=== PATIENT | female | born 1945 | race Caucasian/White ===

== ENCOUNTER 2018-08-15 10:40 | Emergency (ER) | payer MEDICARE ==
[~2018-08-15 10:40] MED LIST: AMOX-429 PO; LISI30TA4 PO; METF-444 PO; OMEP40CA37 PO; PRAV80TA21 PO
[2018-08-15 11:03] LABS: BASOPHILS % (AUTO) 0.4 % (0.0-5.0); EOSINOPHILS % (AUTO) 1.3 % (0.0-8.0); LYMPHOCYTES % (AUTO) 32.8 % (21.0-51.0); MEAN CORPUSCULAR HEMOGLOBIN 29.4 pg (27.0-33.0); MEAN CORPUSCULAR HGB CONC 33.9 g/dL (32.0-36.0); MEAN CORPUSCULAR VOLUME 86.7 fL (79-99); MONOCYTES % (AUTO) 7.1 % (3.0-13.0); NEUTROPHILS % (AUTO) 58.4 % (40.0-77.0); NUCLEATED RED BLOOD CELLS 0.2 % (0.0-0.19); PLATELET COUNT (AUTO) 112 K/uL (130-400); RED BLOOD CELL COUNT(AUTO) 4.96 MIL/uL (4.00-5.50); RED CELL DISTRIBUTION WIDTH 12.2 % (11.0-15.5); WHITE BLOOD COUNT (AUTO) 7.5 K/uL (4.8-10.8)
[2018-08-15] MEDS ORDERED: IBUPROFEN 200 MG TAB ONE (11:38)
[2018-08-15] MEDS ORDERED: LORAZEPAM 1 MG TABLET ONE (11:39)
== END 2018-08-15 15:35 | disposition home or self-care (01) ==
LOC: EDH 10:40
DX: S16.1XXA Strain of muscle, fascia and tendon at neck level, initial encounter (principal); E11.9 Type 2 diabetes mellitus without complications; I10 Essential (primary) hypertension; E78.5 Hyperlipidemia, unspecified; F41.9 Anxiety disorder, unspecified; Z79.899 Other long term (current) drug therapy; V49.9XXA Car occupant (driver) (passenger) injured in unspecified traffic accident, initial encounter; Y93.89 Activity, other specified; Y92.89 Other specified places as the place of occurrence of the external cause; Y99.8 Other external cause status
CPT/HCPCS: 36415; 72040; 85025; 93005

== ENCOUNTER 2019-07-03 13:47 | Emergency (ER) | payer MEDICARE ==
[~2019-07-03 13:47] MED LIST changes: +OMEP40CA13 PO; -OMEP40CA37 PO
[2019-07-03] MEDS ORDERED: MORPHINE SULFATE 4 MG/1ML SYG ONE (14:22)
[2019-07-03] MEDS ORDERED: ONDANSETRON HCL 4 MG/2 ML VIAL ONE (14:22)
[2019-07-03 14:44] LABS: BASOPHILS % (AUTO) 0.4 % (0.0-5.0); EOSINOPHILS % (AUTO) 1.9 % (0.0-8.0); HEMATOCRIT 42.7 % (36-48); LYMPHOCYTES % (AUTO) 33.6 % (21.0-51.0); MEAN CORPUSCULAR VOLUME 88.2 fL (79-99); MONOCYTES % (AUTO) 5.9 % (3.0-13.0); NEUTROPHILS % (AUTO) 58.2 % (40.0-77.0); NUCLEATED RED BLOOD CELLS 0.1 % (0.0-0.19); PLATELET COUNT (AUTO) 123 K/uL (130-400); RED BLOOD CELL COUNT(AUTO) 4.84 MIL/uL (4.00-5.50); RED CELL DISTRIBUTION WIDTH 12.6 % (11.0-15.5); WHITE BLOOD COUNT (AUTO) 8.1 K/uL (4.8-10.8)
[2019-07-03 14:55] LABS: CREATININE 1.1 mg/dL (0.5-1.5); POTASSIUM 3.8 mmol/L (3.5-5.1)
[2019-07-03 14:57] LABS: INR 0.94 (0.85-1.15); PARTIAL THROMBOPLASTIN TIME 24.8 SEC (26.3-35.5); PROTHROMBIN TIME 9.9 SEC (9.6-11.6)
[2019-07-03 14:59] LABS: ALBUMIN 4.2 g/dL (3.5-5.0); BILIRUBIN,TOTAL 0.6 mg/dL (0.2-1.0); TOTAL PROTEIN, SERUM 7.3 g/dL (6.0-8.3)
[2019-07-03] MEDS ORDERED: LABETALOL 20 MG/4 ML DISP.SYRIN IV ONE (15:33)
[2019-07-03 15:44] LABS: B-TYPE NATRIURETIC PEPTIDE 17 pg/mL (0-100)
[2019-07-03 15:47] LABS: APPEARANCE,URINE Clear (CLEAR); BILIRUBIN,URINE Negative (NEGATIVE); COLOR,URINE Yellow (YELLOW); GLUCOSE, URINE (UA) Negative (NEGATIVE); KETONES,URINE Negative (NEGATIVE); LEUKOCYTE ESTERASE ,URINE Negative (NEGATIVE); NITRATE,URINE Negative (NEGATIVE); OCCULT BLOOD,URINE Negative (NEGATIVE); PH,URINE 5.5 (5.0-8.0); PROTEIN,URINE Negative (NEGATIVE)
== END 2019-07-03 16:57 | disposition home or self-care (01) ==
LOC: EDH 13:47
DX: R10.11 Right upper quadrant pain (principal); Z90.49 Acquired absence of other specified parts of digestive tract; Z90.710 Acquired absence of both cervix and uterus; Z98.890 Other specified postprocedural states
CPT/HCPCS: 36415; 71045; 74176; 80053; 81003; 82550; 83690; 83880; 84484; 85025; 85610; 85730; 93005; 96374; 96375; 99285; J2270; J2405

== ENCOUNTER 2020-06-11 08:57 | Emergency (ER) | payer MEDICARE ==
[2020-06-11] MEDS ORDERED: ONDANSETRON HCL 4 MG/2 ML VIAL ONE (09:22)
[2020-06-11] MEDS ORDERED: MORPHINE SULFATE 4 MG/1ML SYG ONE (09:23)
[2020-06-11 09:27] LABS: BASOPHILS % (AUTO) 0.5 % (0.0-5.0); EOSINOPHILS % (AUTO) 0.9 % (0.0-8.0); HEMATOCRIT 45.3 % (36-48); LYMPHOCYTES % (AUTO) 36.6 % (21.0-51.0); MEAN CORPUSCULAR HGB CONC 33.6 g/dL (32.0-36.0); MEAN CORPUSCULAR VOLUME 86.5 fL (79-99); MONOCYTES % (AUTO) 5.9 % (3.0-13.0); NEUTROPHILS % (AUTO) 55.7 % (40.0-77.0); PLATELET COUNT (AUTO) 117 K/uL (130-400); RED BLOOD CELL COUNT(AUTO) 5.24 MIL/uL (4.00-5.50); WHITE BLOOD COUNT (AUTO) 8.1 K/uL (4.8-10.8)
[2020-06-11 09:37] LABS: CREATININE 1.2 mg/dL (0.5-1.5); POTASSIUM 4.1 mmol/L (3.5-5.1)
[2020-06-11 09:40] LABS: INR 0.97 (0.85-1.15); PARTIAL THROMBOPLASTIN TIME 25.9 SEC (26.3-35.5); PROTHROMBIN TIME 10.5 SEC (9.6-11.6)
[2020-06-11 09:42] LABS: ALBUMIN 4.6 g/dL (3.5-5.0); BILIRUBIN,TOTAL 0.7 mg/dL (0.2-1.0); TOTAL PROTEIN, SERUM 7.7 g/dL (6.0-8.3)
[2020-06-11 09:54] LABS: APPEARANCE,URINE CLEAR (CLEAR); BILIRUBIN,URINE NEGATIVE (NEGATIVE); COLOR,URINE YELLOW (YELLOW); GLUCOSE, URINE (UA) NEGATIVE (NEGATIVE); KETONES,URINE 5 mg/dL (NEGATIVE); LEUKOCYTE ESTERASE ,URINE SMALL (NEGATIVE); NITRATE,URINE NEGATIVE (NEGATIVE); OCCULT BLOOD,URINE NEGATIVE (NEGATIVE); PH,URINE 5.5 (5.0-8.0); PROTEIN,URINE 30 mg/dL (NEGATIVE)
[2020-06-11 10:11] LABS: BACTERIA,URINE Few /HPF (None Seen); CALCIUM OXALATE CRYSTALS,UR Few /LPF (None Seen); SQUAMOUS EPITHELIAL CELL,UR Rare /HPF (0-2)
[2020-06-11] MEDS ORDERED: CEFTRIAXONE SODIUM 1 GM ONE (10:28)
[2020-06-11] MEDS ORDERED: SODIUM CHLORIDE 0.9% 50 ML IV ONE (10:29)
== END 2020-06-11 11:40 | disposition home or self-care (01) ==
LOC: EDH 08:57
DX: N39.0 Urinary tract infection, site not specified (principal); E11.9 Type 2 diabetes mellitus without complications; I10 Essential (primary) hypertension; Z90.49 Acquired absence of other specified parts of digestive tract; Z90.710 Acquired absence of both cervix and uterus
CPT/HCPCS: 36415; 74176; 80053; 81001; 82550; 84484; 85025; 85610; 85730; 87088; 93005; 96374; 96375; 99285; J0696; J2270; J2405

== ENCOUNTER 2020-06-15 14:34 | Emergency (ER) | payer MEDICARE ==
[2020-06-15] MEDS ORDERED: ONDANSETRON HCL 4 MG/2 ML VIAL ONE (15:51)
[2020-06-15 16:29] LABS: BASOPHILS % (AUTO) 0.5 % (0.0-5.0); EOSINOPHILS % (AUTO) 1.5 % (0.0-8.0); HEMATOCRIT 43.1 % (36-48); LYMPHOCYTES % (AUTO) 26.1 % (21.0-51.0); MEAN CORPUSCULAR HEMOGLOBIN 29.1 pg (27.0-33.0); MEAN CORPUSCULAR HGB CONC 33.4 g/dL (32.0-36.0); MEAN CORPUSCULAR VOLUME 87.1 fL (79-99); NEUTROPHILS % (AUTO) 62.6 % (40.0-77.0); PLATELET COUNT (AUTO) 121 K/uL (130-400); RED BLOOD CELL COUNT(AUTO) 4.95 MIL/uL (4.00-5.50); WHITE BLOOD COUNT (AUTO) 6.1 K/uL (4.8-10.8)
[2020-06-15 16:46] LABS: ALBUMIN 4.1 g/dL (3.5-5.0); BILIRUBIN,TOTAL 0.5 mg/dL (0.2-1.0); CREATININE 1.2 mg/dL (0.5-1.5); POTASSIUM 3.6 mmol/L (3.5-5.1)
[2020-06-15 17:49] LABS: APPEARANCE,URINE Clear (CLEAR); BILIRUBIN,URINE Negative (NEGATIVE); COLOR,URINE Dark Yellow (YELLOW); GLUCOSE, URINE (UA) Negative (NEGATIVE); KETONES,URINE Trace mg/dL (NEGATIVE); LEUKOCYTE ESTERASE ,URINE Small (NEGATIVE); NITRATE,URINE Negative (NEGATIVE); OCCULT BLOOD,URINE Negative (NEGATIVE); PROTEIN,URINE Trace mg/dL (NEGATIVE)
[2020-06-15 18:04] LABS: BACTERIA,URINE Few /HPF (None Seen); RBC,URINE None Seen /HPF (0-1); SQUAMOUS EPITHELIAL CELL,UR None Seen /HPF (0-2)
== END 2020-06-15 20:48 | disposition home or self-care (01) ==
LOC: EDH 14:34
DX: N39.0 Urinary tract infection, site not specified (principal); E11.9 Type 2 diabetes mellitus without complications; I10 Essential (primary) hypertension; Z90.49 Acquired absence of other specified parts of digestive tract; Z90.710 Acquired absence of both cervix and uterus; Z79.899 Other long term (current) drug therapy
CPT/HCPCS: 36415; 76770; 80053; 81001; 82550; 84484; 85025; 87088; 93005; 96374; 99285; J2405

== ENCOUNTER 2022-04-11 05:16 | Emergency (ER) | payer MEDICARE ==
[~2022-04-11] VITALS: Ht 172.7 cm; Wt 83.0 kg
[~2022-04-11 05:16] MED LIST changes: -OMEP40CA13 PO; +OMEP40CA21 PO
[2022-04-11 05:41] LABS: APPEARANCE,URINE CLEAR (CLEAR); BILIRUBIN,URINE NEGATIVE (NEGATIVE); COLOR,URINE YELLOW (YELLOW); GLUCOSE, URINE (UA) 250 mg/dL (NEGATIVE); KETONES,URINE NEGATIVE (NEGATIVE); LEUKOCYTE ESTERASE ,URINE TRACE (NEGATIVE); NITRATE,URINE NEGATIVE (NEGATIVE); OCCULT BLOOD,URINE SMALL (NEGATIVE); PH,URINE 5.5 (5.0-8.0); PROTEIN,URINE NEGATIVE (NEGATIVE); UROBILINOGEN,URINE 0.2 mg/dL (0.2-1.0)
[2022-04-11 05:45] LABS: BACTERIA,URINE None Seen /HPF (None Seen); RBC,URINE 0-1 /HPF (0-1); SQUAMOUS EPITHELIAL CELL,UR Few /HPF (0-2)
[2022-04-11 05:59] LABS: BASOPHILS % (AUTO) 0.5 % (0.0-5.0); EOSINOPHILS % (AUTO) 1.4 % (0.0-8.0); LYMPHOCYTES % (AUTO) 29.3 % (21.0-51.0); MEAN CORPUSCULAR HEMOGLOBIN 29.3 pg (27.0-33.0); MEAN CORPUSCULAR HGB CONC 34.1 g/dL (32.0-36.0); MEAN CORPUSCULAR VOLUME 85.8 fL (79-99); MONOCYTES % (AUTO) 8.9 % (3.0-13.0); NEUTROPHILS % (AUTO) 59.4 % (40.0-77.0); PLATELET COUNT (AUTO) 99 K/uL (130-400); RED BLOOD CELL COUNT(AUTO) 4.78 MIL/uL (4.00-5.50); RED CELL DISTRIBUTION WIDTH 12.5 % (11.0-15.5); WHITE BLOOD COUNT (AUTO) 8.3 K/uL (4.8-10.8)
[2022-04-11] MEDS ORDERED: MORPHINE 2 MG SYG IVP ONE (06:00)
[2022-04-11] MEDS ORDERED: LACTATED RINGERS 1000ML 1,000 ML IV ONE (06:00)
[2022-04-11] MEDS ORDERED: ONDANSETRON 4MG INJ IVP ONE (06:00)
[2022-04-11 06:13] LABS: ALBUMIN 3.9 g/dL (3.5-5.0); TOTAL PROTEIN, SERUM 6.8 g/dL (6.0-8.3)
[2022-04-11] MEDS ORDERED: IOHEXOL 350 MG/ML 100ML INFUS..BTL IV ONE (06:21)
[2022-04-11 06:30] VITALS: BP 191/80
[2022-04-11] MEDS ORDERED: ZOSYN 3.375GM +NS 50ML IV SCH (06:30)
[2022-04-11] MEDS ORDERED: CEPH500B PO (09:07)
== END 2022-04-11 09:18 | disposition home or self-care (01) ==
LOC: EDH 05:16
DX: N39.0 Urinary tract infection, site not specified (principal); E11.9 Type 2 diabetes mellitus without complications; I10 Essential (primary) hypertension; E86.0 Dehydration; Z90.49 Acquired absence of other specified parts of digestive tract; Z87.442 Personal history of urinary calculi
CPT/HCPCS: 36415; 74177; 80053; 81001; 83690; 85025; 96361; 96374; 96375; J2405; J2543; J7120; Q9967

== ENCOUNTER 2023-06-27 12:59 | Emergency (ER) | payer MEDICARE ==
[~2023-06-27] VITALS: Ht 175.3 cm; Wt 83.9 kg
[~2023-06-27 12:59] MED LIST changes: +CEPH500B PO
[2023-06-27 13:45] LABS: BASOPHILS # (AUTO) 0.03 K/uL (0.00-0.20); BASOPHILS % (AUTO) 0.4 % (0.0-5.0); EOSINOPHILS # (AUTO) 0.08 K/uL (0.00-0.70); HEMATOCRIT 42.6 % (36-48); IMMATURE GRANULOCYTE ABSOLUTE 0.03 K/uL (0-1); LYMPHOCYTES # (AUTO) 1.7 K/uL (1.0-4.8); LYMPHOCYTES % (AUTO) 21.1 % (21.0-51.0); MEAN CORPUSCULAR HEMOGLOBIN 29.1 pg (27.0-33.0); MEAN CORPUSCULAR VOLUME 85.4 fL (79-99); MONOCYTES # (AUTO) 0.6 K/uL (0.1-1.0); MONOCYTES % (AUTO) 7.8 % (3.0-13.0); NEUTROPHILS # (AUTO) 5.4 K/uL (1.8-7.7); NEUTROPHILS % (AUTO) 69.3 % (40.0-77.0); PLATELET COUNT (AUTO) 131 K/uL (130-400); RED BLOOD CELL COUNT(AUTO) 4.99 MIL/uL (4.00-5.50); RED CELL DISTRIBUTION WIDTH 12.3 % (11.0-15.5); WHITE BLOOD COUNT (AUTO) 7.9 K/uL (4.8-10.8)
[2023-06-27 13:56] LABS: CREATININE 1.2 mg/dL (0.5-1.5); POTASSIUM 3.6 mmol/L (3.5-5.1)
[2023-06-27 14:05] LABS: SARS-CoV-2, RNA, NAAT NEGATIVE SARS CoV-2 (NEGATIVE)
[2023-06-27 14:06] LABS: ALBUMIN 4.1 g/dL (3.5-5.0); BILIRUBIN,TOTAL 0.9 mg/dL (0.2-1.0)
[2023-06-27 14:10] LABS: INFLUENZA TYPE A Negative For Type A (NEGATIVE); INFLUENZA TYPE B Negative For Type B (NEGATIVE)
[2023-06-27] MEDS ORDERED: LACTATED RINGERS 1000ML 1,000 ML IV ONE (14:30)
[2023-06-27] MEDS ORDERED: ONDANSETRON 4MG INJ IVP ONE (14:30)
[2023-06-27] MEDS ORDERED: METR-172 PO (15:56)
[2023-06-27 17:05] VITALS: BP 168/79; PULSE 68; RESP 18; O2SAT 100
== END 2023-06-27 17:06 | disposition home or self-care (01) ==
LOC: EDH 12:59
DX: K52.9 Noninfective gastroenteritis and colitis, unspecified (principal); E11.9 Type 2 diabetes mellitus without complications; E78.00 Pure hypercholesterolemia, unspecified; I10 Essential (primary) hypertension; Z90.49 Acquired absence of other specified parts of digestive tract; Z20.822 Contact with and (suspected) exposure to COVID-19; Z98.890 Other specified postprocedural states
CPT/HCPCS: 99285; 96374; 87635; 96361; 82550; 83874; 84484; 80053; 85025; 87804 ×2; 36415; 74018; 93005; C9803; J7120; J2405

== ENCOUNTER 2023-08-23 17:32 | Emergency (ER) | payer MEDICARE ==
[~2023-08-23] VITALS: Ht 167.6 cm; Wt 107.0 kg
[~2023-08-23 17:32] MED LIST changes: +METR-172 PO
[2023-08-23 18:59] LABS: HEMATOCRIT 41.4 % (36-48); MEAN CORPUSCULAR HEMOGLOBIN 30.1 pg (27.0-33.0); MEAN CORPUSCULAR HGB CONC 35.5 g/dL (32.0-36.0); MEAN CORPUSCULAR VOLUME 84.7 fL (79-99); PLATELET COUNT (AUTO) 118 K/uL (130-400); RED BLOOD CELL COUNT(AUTO) 4.89 MIL/uL (4.00-5.50); RED CELL DISTRIBUTION WIDTH 12.3 % (11.0-15.5); WHITE BLOOD COUNT (AUTO) 6.9 K/uL (4.8-10.8)
[2023-08-23 19:27] LABS: EOSINOPHILS % (MANUAL) 3 % (1-6); LYMPHOCYTES % (MANUAL) 37 % (22-44); MONOCYTES % (MANUAL) 7 % (2-9); SEGMENTED NEUTROPHILS % 53 % (40-70); TOTAL CELLS COUNTED 100
[2023-08-23] MEDS ORDERED: LABETALOL 20MG SYG IV ONE (19:30)
[2023-08-23] MEDS ORDERED: HYDROMORPHONE 0.5 MG SYG (0.5MG/0.5ML) IVP ONE (19:30)
[2023-08-23 19:36] LABS: MAN.DIFF COMMENT-IMPRESSION MANUAL DIFFERENTIAL; PLATELET MORPHOLOGY COMMENT SLIGHTLY DECREASED; WBC MORPHOLOGY SMUDGE CELLS 1+
[2023-08-23 19:49] LABS: BILIRUBIN,TOTAL 0.6 mg/dL (0.2-1.0); CREATININE 0.7 mg/dL (0.5-1.5); POTASSIUM 4.9 mmol/L (3.5-5.1); TOTAL PROTEIN, SERUM 7.1 g/dL (6.0-8.3)
[2023-08-23 21:31] VITALS: BP 168/70; PULSE 78; RESP 18; O2SAT 98
[2023-08-23 21:37] LABS: APPEARANCE,URINE CLEAR (CLEAR); BILIRUBIN,URINE NEGATIVE (NEGATIVE); COLOR,URINE LIGHT-YELLOW (YELLOW); GLUCOSE, URINE (UA) NEGATIVE (NEGATIVE); KETONES,URINE NEGATIVE (NEGATIVE); LEUKOCYTE ESTERASE ,URINE NEGATIVE Leu/uL (NEGATIVE); NITRATE,URINE NEGATIVE (NEGATIVE); OCCULT BLOOD,URINE NEGATIVE (NEGATIVE); PROTEIN,URINE NEGATIVE (NEGATIVE); UROBILINOGEN,URINE 0.2 mg/dL (0.2-1.0)
[2023-08-23 21:39] LABS: ADD UA MICROSCOPIC NO
[2023-08-23] MEDS ORDERED: IBUP-1493 PO (21:50)
[2023-08-23] MEDS ORDERED: CYCL-309 PO (21:50)
[2023-08-23] MEDS ORDERED: GABA300C PO (21:50)
[2023-08-23] MEDS ORDERED: LIDOP TD (21:50)
== END 2023-08-23 22:07 | disposition home or self-care (01) ==
LOC: EDH 17:32
DX: I10 Essential (primary) hypertension (principal); M54.50 Low back pain, unspecified; E11.9 Type 2 diabetes mellitus without complications; E78.00 Pure hypercholesterolemia, unspecified; Z90.49 Acquired absence of other specified parts of digestive tract
CPT/HCPCS: 99285; 96374; 71045; 96375; 82550; 84484; 80053; 85025; 81003; 36415; 93005; J1170

== ENCOUNTER → 2023-10-29 | Outpatient (CLI) | payer MEDICARE ==
[~2023-10-29] MED LIST changes: +CYCL-309 PO; +GABA300C PO; +IBUP-1493 PO; +LIDOP TD
== END | disposition home or self-care (01) ==
LOC: SHCH 13:12
PROVIDERS: ATTEND Student in an Organized Health Care Education/Training Program
DX: R94.31 Abnormal electrocardiogram [ECG] [EKG] (principal)
CPT/HCPCS: 93306

== ENCOUNTER 2023-12-26 21:24 | Emergency (ER) | payer MEDICARE ==
[~2023-12-26] VITALS: Ht 175.3 cm; Wt 79.4 kg
[~2023-12-26 21:24] MED LIST changes: -PRAV80TA21 PO; +PRAV80TA43 PO
[2023-12-26 21:55] LABS: BASOPHILS # (AUTO) 0.05 K/uL (0.00-0.20); BASOPHILS % (AUTO) 0.7 % (0.0-5.0); EOSINOPHILS # (AUTO) 0.09 K/uL (0.00-0.70); EOSINOPHILS % (AUTO) 1.2 % (0.0-8.0); IMMATURE GRANULOCYTE ABSOLUTE 0.02 K/uL (0-1); LYMPHOCYTES # (AUTO) 1.9 K/uL (1.0-4.8); LYMPHOCYTES % (AUTO) 24.9 % (21.0-51.0); MEAN CORPUSCULAR HGB CONC 33.2 g/dL (32.0-36.0); MEAN CORPUSCULAR VOLUME 87.4 fL (79-99); MONOCYTES # (AUTO) 0.6 K/uL (0.1-1.0); MONOCYTES % (AUTO) 8.3 % (3.0-13.0); NEUTROPHILS # (AUTO) 4.8 K/uL (1.8-7.7); NEUTROPHILS % (AUTO) 64.6 % (40.0-77.0); PLATELET COUNT (AUTO) 131 K/uL (130-400); RED BLOOD CELL COUNT(AUTO) 4.69 MIL/uL (4.00-5.50); RED CELL DISTRIBUTION WIDTH 12.4 % (11.0-15.5); WHITE BLOOD COUNT (AUTO) 7.4 K/uL (4.8-10.8)
[2023-12-26 22:02] LABS: RAPID GROUP A STREP negative (NEGATIVE)
[2023-12-26 22:05] LABS: POTASSIUM 3.6 mmol/L (3.5-5.1); SARS-CoV-2, RNA, NAAT NEGATIVE SARS CoV-2 (NEGATIVE)
[2023-12-26 22:09] LABS: INFLUENZA TYPE A Negative For Type A (NEGATIVE); INFLUENZA TYPE B Negative For Type B (NEGATIVE)
[2023-12-26 22:13] LABS: ALBUMIN 4.1 g/dL (3.5-5.0); BILIRUBIN,TOTAL 0.7 mg/dL (0.2-1.0)
[2023-12-26 22:16] LABS: B-TYPE NATRIURETIC PEPTIDE 18 pg/mL (0-100)
[2023-12-27 01:34] VITALS: BP 170/76; PULSE 64; RESP 17; O2SAT 95
[2023-12-27] MEDS: HYDROXYZINE 25 MG TABLET PO ONE (01:51)
== END 2023-12-27 01:51 | disposition home or self-care (01) ==
LOC: EDH 21:24
DX: R00.2 Palpitations (principal); I10 Essential (primary) hypertension; E11.9 Type 2 diabetes mellitus without complications; E78.00 Pure hypercholesterolemia, unspecified; Z20.822 Contact with and (suspected) exposure to COVID-19; Z79.899 Other long term (current) drug therapy; Z90.49 Acquired absence of other specified parts of digestive tract; Z90.710 Acquired absence of both cervix and uterus; Z79.84 Long term (current) use of oral hypoglycemic drugs; Z98.890 Other specified postprocedural states
CPT/HCPCS: 36415; 71045; 80053; 82550; 83880; 84484; 85025; 87635; 87804; 87880; 93005

== ENCOUNTER → 2024-05-08 | Outpatient (CLI) | payer MEDICARE ==
[~2024-05-08] MED LIST changes: +PRAV80TA21 PO; -PRAV80TA43 PO
== END | disposition home or self-care (01) ==
LOC: SHCH 13:01
PROVIDERS: ATTEND Student in an Organized Health Care Education/Training Program
DX: I87.1 Compression of vein (principal); I87.2 Venous insufficiency (chronic) (peripheral)
CPT/HCPCS: 93970

== ENCOUNTER 2025-07-26 05:27 | Emergency (ER) | payer MEDICARE ==
[~2025-07-26] VITALS: Ht 170.2 cm; Wt 68.9 kg
[~2025-07-26 05:27] MED LIST changes: -PRAV80TA21 PO; +PRAV80TA75 PO
[2025-07-26 06:00] LABS: IMMATURE GRANULOCYTE ABSOLUTE 0.02 K/uL (0-1); NUCLEATED RED BLOOD CELLS 0.0 % (0.0-0.19); PLATELET COUNT (AUTO) 96 K/uL (130-400); RED BLOOD CELL COUNT(AUTO) 4.34 MIL/uL (4.00-5.50); RED CELL DISTRIBUTION WIDTH 12.4 % (11.0-15.5); WHITE BLOOD COUNT (AUTO) 7.2 K/uL (4.8-10.8)
--- NOTE | 2025-07-26 06:11 | ERN ---
General Chief Complaint: Headache Stated Complaint: C/O HEAD PAIN WITH RT EYE PAIN Time Seen by MD: 05:33 History of Present Illness Initial Comments 79-year-old female who presents for right-sided headache. Patient reports that for the last 12 hours or so she has had arthrotomy headache of the right side. She reports pressure near her eye. No vision changes. She does report some chun sea without vomiting. She reports moderate to severe headache. She did not take any Tylenol or ibuprofen because she is a has a an upcoming skin procedure and was told not take any medication for this. She has no pain in the temporal area. No fevers. No neck stiffness. She denies any falls. No blood thinners. She does have a history of high cholesterol hypertension and diabetes. She does not have a history of frequent headaches. Allergies: Coded Allergies: No Known Allergies (Verified Allergy, 10/27/12) Home Meds Active Scripts Lidocaine (Lidoderm Patch 5%) 5 % Patch, 1 PATCH TD DAILY for 30 Days, #30 ADH.PATCH 0 Refills Prov:CARLOS FOSTER MD 08/23/23 Ibuprofen (Motrin/Advil) 800 Mg Tab, 800 MG PO TID, #30 TAB Prov:CARLOS FOSTER MD 08/23/23 Gabapentin (Neurontin) 300 Mg Capsule, 300 MG PO TID, #60 CAP Prov:CARLOS FOSTER MD 08/23/23 Cyclobenzaprine HCl (Cyclobenzaprine HCl) 10 Mg Tablet, 10 MG PO TID, #60 TAB Prov:CARLOS FOSTER MD 08/23/23 Metronidazole (Metronidazole) 500 Mg Tablet, 500 MG PO TID for 10 Days, #30 TAB 0 Refills Prov:ELOISE CASILLAS Sr., MD 06/27/23 Cephalexin Monohydrate (Keflex) 500 Mg Cap, 500 MG PO BID, #5 DAYS Prov:CRISELDA MONTOYA MD 04/11/22 Amoxicillin/Potassium Clav (Augmentin 875-125 Tablet) 1 Each Tablet, 1 EACH PO BID, #14 TAB Prov:LEOLA DODSON MD 03/10/17 Reported Medications Pravastatin Sodium (Pravastatin Sodium) 80 Mg Tablet, 1 TAB PO HS, #90 02/23/17 Lisinopril (Lisinopril) 30 Mg Tablet, 1 TAB PO 2000, #90 02/23/17 Omeprazole (Omeprazole) 40 Mg Capsule.dr, 1 CAP PO NOON, #90 02/23/17 Metformin HCl (Metformin HCl) 500 Mg Tablet, 1 TAB PO 1700, #90 02/23/17 Past Medical History Past Medical History: Diabetes-Type II, Hypertension Past Surgical History: Hysterectomy, Tonsillectomy, Cholecystectomy Family History Family History: Negative Social History Social History: Negative ROS Dictation CONSTITUTIONAL: No chills, no fever, no weakness, no diaphoresis, no malaise. HEAD/FACE: No signs of trauma. EENT: No eye pain, no blurred vision, no tearing, no double vision, no ear pain, no ear discharge, no nose pain, no nasal congestion, no throat pain, no throat swelling, no mouth pain. RESPIRATORY: No cough, no orthopnea, no SOB, no stridor, no wheezing. CARDIOVASCULAR: No chest pain, no edema, no palpitations, no syncope. GASTROINTESTINAL/ABDOMINAL: No abdominal pain, no constipation, no diarrhea, no nausea, no vomiting. GENITOURINARY: No abnormal discharge, no dysuria, no frequent urination, no hematuria. No complaints of pain in the genitals. MUSCULOSKELETAL: No back pain, no gout, no joint pain, no joint swelling, no muscle pain, no muscle stiffness, no neck pain. INTEGUMENTARY: No change in color, no change in hair/nails, no dryness, no lesion, no lumps, no rash. NEUROLOGICAL/PSYCH: No anxiety, not depressed, no emotional problem, headache HEMATOLOGIC/LYMPHATIC: Not anemic, no history of blood clots, no apparent bleeding, no bruising, glands not swollen. All Systems Negative, Except as Noted. Physical Exam Physical Exam Dictation VITAL SIGNS: Reviewed. GENERAL APPEARANCE: Alert, oriented x3, no acute distress. HEAD AND FACE: Non-traumatic. EYES: PERRL, pink conjunctivas, eyelid no trauma, anterior chamber clear. EARS: Pinnas intact and no signs of trauma or erythema. Ear canals clear and no discharge. TMs no erythema. NOSE: No discharge, no bleeding. OROPHARYNX: Mouth normal, teeth no caries, tongue pink. Pharynx clear, no erythema. Tonsils no exudates, no abscesses noted. Mucous membrane moist. NECK: Supple, non-tender, no thyromegaly, no masses, no JVD, no bruits. BREAST: Deferred. CHEST: No tenderness, no crepitus, no paradoxical movement, no retractions. LUNGS: Clear, well-ventilated, symmetric, no rales, no wheezing, no rhonchi, no stridor, good breath sounds bilaterally. HEART: Regular rate, regular rhythm, no murmur, no gallops. VASCULAR: No peripheral edema. ABDOMEN: Soft, positive bowel sounds, nondistended, no guarding, nontender, no rebound, no masses no hepatomegaly, no splenomegaly, no Huynh's sign, no hernias. RECTAL: Deferred. GENITAL: Deferred. NEUROLOGICAL: Normal speech, gross motor function intact, gross sensory function intact. MUSCULOSKELETAL: Neck nontender, full range of motion, back nontender, full range of motion. EXTREMITIES: Nontender, full range of motion. SKIN: Color pink, dry, no turgor, no rash, no lacerations, no abrasions, no contusions. LYMPHATICS: Deferred. Results Laboratory and Microbiology Lab and Micro Result Laboratory Tests Test 07/26/25 05:50 07/26/25 05:58 White Blood Count 7.2 K/uL (4.8-10.8) Red Blood Count 4.34 MIL/uL (4.00-5.50) Hemoglobin 12.7 g/dL (12.0-16.0) Hematocrit 38.0 % (36-48) Mean Corpuscular Volume 87.6 fL (79-99) Mean Corpuscular Hemoglobin 29.3 pg (27.0-33.0) Mean Corpuscular Hemoglobin Concent 33.4 g/dL (32.0-36.0) Red Cell Distribution Width 12.4 % (11.0-15.5) Platelet Count 96 K/uL (130-400) L Mean Platelet Volume 12.0 fL (7.5-10.5) H Immature Granulocyte % (Auto) 0.3 % (0-1) Neutrophils (%) (Auto) 63.4 % (40.0-77.0) Lymphocytes (%) (Auto) 26.7 % (21.0-51.0) Monocytes (%) (Auto) 7.5 % (3.0-13.0) Eosinophils (%) (Auto) 1.8 % (0.0-8.0) Basophils (%) (Auto) 0.3 % (0.0-5.0) Neutrophils # (Auto) 4.5 K/uL (1.8-7.7) Lymphocytes # (Auto) 1.9 K/uL (1.0-4.8) Monocytes # (Auto) 0.5 K/uL (0.1-1.0) Eosinophils # (Auto) 0.13 K/uL (0.00-0.70) Basophils # (Auto) 0.02 K/uL (0.00-0.20) Absolute Immature Granulocyte (auto 0.02 K/uL (0-1) Nucleated Red Blood Cells 0.0 % (0.0-0.19) Sodium Level 147 mmol/L (136-145) H Potassium Level 4.8 mmol/L (3.5-5.1) Chloride Level 108 mmol/L (101-111) Carbon Dioxide Level 27 mmol/L (21-32) Blood Urea Nitrogen 27 mg/dL (7-18) H Creatinine 1.0 mg/dL (0.5-1.0) Glomerular Filtration Rate Calc 57 mL/min (>90) Random Glucose 96 mg/dL (70-105) Total Calcium 9.6 mg/dL (8.5-10.1) Erythrocyte Sedimentation Rate 2 MM/HR (0-30) MDM MDM: Differential diagnosis: Rationale: Tests considered and ordered secondary to shared decision making include: Previous outside records reviewed: Old ER visits. Risk of complication and/or morbidity or mortality of patient management: None Medications-Per medication reconciliation Need for hospitalization: Patient does not meet criteria for hospitalization. Need for emergency major/minor surgery: No There are no social concerns with this patient. Prescription drug management Prescriptions will include symptomatic care Patient's prior external medical records from other ER visits were reviewed by me as indicated. Prior testing and results from previous visits were reviewed. Prior tests were taken into account with medical decision making and resource utilization, independent historian/historians were used to obtain complete medical history. I independently interpreted the test that were performed, results were reviewed by me and considered findings on radiology if ordered. Medical management and examination interpretation discussions were had by me wit h other qualified healthcare professionals as indicated for the patient's care. 79-year-old female headache, stable exam negative workup symptoms improved blood pressure improved. ED Course Orders Procedure Category Date Status Time Ct Head/Brain W/O CT 07/26/25 Resulted Contrast 05:41 Cbc With Differential LAB 07/26/25 Complete 05:41 Basic Metabolic Panel LAB 07/26/25 Complete 05:41 Erythrocyte Sed Rate LAB 07/26/25 Complete 05:59 Ketorolac PHA 07/26/25 Complete Tromethamine 15mg/Ml 06:00 Acetaminophen 500mg PHA 07/26/25 Complete Tab (Tylenol 500mg T 06:00 Lactated Ringers PHA 07/26/25 Complete 1000ml (Lactated 06:00 Ice For Pain Control CPOE 07/26/25 Transmitted 05:[address] 07/26/25 Resulted 06:47 Hydralazine 20mg Inj PHA 07/26/25 Complete (Apresoline 20mg In 07:00 Labetalol 20mg Syg PHA 07/26/25 Complete (Trandate 20mg Syg) 08:00 Iohexol (Omnipaque) PHA 07/26/25 Complete 07:46 Current Medications Medications (Trade) Dose Ordered Sig/Alma Delia Route PRN Reason Start Time Stop Time Status Last Admin Dose Admin Acetaminophen (TYLenol 500MG TAB) 1,000 mg ONCE ONCE PO 07/26/25 06:00 07/26/25 06:02 DC 07/26/25 06:17 Hydralazine HCl (APRESOLine 20MG INJ) 10 mg ONCE ONCE IV 07/26/25 07:00 07/26/25 07:06 DC Iohexol (Omnipaque) 75 ml STK-MED ONCE IV 07/26/25 07:46 07/26/25 07:46 DC Ketorolac Tromethamine (toRADol) 15 mg ONCE ONCE IV 07/26/25 06:00 07/26/25 06:02 DC 07/26/25 06:16 Labetalol HCl (TRANdate 20MG SYG) 10 mg ONCE ONCE IV 07/26/25 08:00 07/26/25 08:01 DC 07/26/25 09:36 Lactated Ringer's 1,000 ml @ 0 mls/hr ONCE ONCE IV 07/26/25 06:00 07/26/25 06:02 DC 07/26/25 06:17 Vital Signs Date Time Temp Pulse Resp B/P (MAP) Pulse Ox O2 Delivery O2 Flow Rate FiO2 07/26/25 10:02 54 20 168/57 99 Room Air* 0 21 07/26/25 09:36 186/64 07/26/25 09:00 55 20 177/66 97 Room Air* 0 21 07/26/25 07:30 62 20 200/75 97 Room Air* 0 21 07/26/25 06:18 98.8 88 18 210/102 99 Room Air* 0 21 07/26/25 05:29 98.1 56 20 208/71 99 Room Air DX & DISP Disposition: Discharge Departure Impression: Primary Impression: Acute headache Condition: Stable Referrals: BRET REDD MD (PCP) JASON JONES DO Jul 26, 2025 06:11 ZIYAD QUEEN MD Jul 26, 2025 10:22
[2025-07-26] MEDS: LACTATED RINGERS 1000ML 1,000 ML IV ONE (06:17)
[2025-07-26 06:18] VITALS: TEMP 98.8
[2025-07-26 06:18] LABS: CREATININE 1.0 mg/dL (0.5-1.0); GLOMERULAR FILTR. RATE CALC 57.0 mL/min (>90); GLUCOSE,RANDOM 96.0 mg/dL (70-105); SODIUM SERUM 147.0 mmol/L (136-145); UREA NITROGEN, BLOOD 27.0 mg/dL (7-18)
--- NOTE | 2025-07-26 07:03 | HMCIMG ---
EXAM: CT Head Without IV contrast. CLINICAL HISTORY: headache TECHNIQUE: Axial computed tomography images of the head/brain without intravenous contrast. COMPARISON: None provided. FINDINGS: BRAIN: No acute bleed or infarct. Chronic ischemic and atrophic changes. VENTRICLES: No hydrocephalus. ORBITS: The orbits are unremarkable. SINUSES AND MASTOIDS: The paranasal sinuses and mastoid air cells are clear. BONES: No fracture. SOFT TISSUES: Unremarkable. IMPRESSION: No acute bleed or infarct. Chronic ischemic and atrophic changes. /[place]
[2025-07-26] MEDS ORDERED: IOHEXOL-350 75 ML VIAL IV ONE (07:46)
--- NOTE | 2025-07-26 09:01 | HMCIMG ---
EXAM: CTA Neck with and without Intravenous Contrast. CLINICAL HISTORY: severe PHILLIPS TECHNIQUE: Axial CTA images of the neck performed with and without intravenous contrast in the arterial phase. Coronal and sagittal reformatted images were generated and reviewed. 3-D reformatted images generated on an independent workstation were also reviewed. NASCET criteria were used in assessment of stenosis. CONTRAST: Contrast injected without incident. COMPARISON: None provided. FINDINGS: VASCULATURE: Internal carotid arteries: No stenosis by NASCET criteria. No dissection or occlusion. Common carotid arteries: Mild intimal calcifications. No significant stenosis. No dissection or occlusion. External carotid arteries: Patent. Vertebral arteries: No significant stenosis. No dissection or occlusion. Soft tissues: No acute finding. Bones: No acute osseous abnormality. IMPRESSION: Unremarkable CTA of the neck. /[place]
[2025-07-26 10:02] VITALS: BP 168/57; PULSE 54; RESP 20; O2SAT 99
== END 2025-07-26 10:42 | disposition home or self-care (01) ==
LOC: EDH 05:27
DX: R51.9 Headache, unspecified (principal); E11.9 Type 2 diabetes mellitus without complications; E78.00 Pure hypercholesterolemia, unspecified; I10 Essential (primary) hypertension; Z79.1 Long term (current) use of non-steroidal anti-inflammatories (NSAID); Z79.899 Other long term (current) drug therapy; Z90.49 Acquired absence of other specified parts of digestive tract; Z90.710 Acquired absence of both cervix and uterus
CPT/HCPCS: 99285; 70496; 96374; 96375; 80048; 85025; 85651; 36415; 70450; J1885; J7120; Q9967

== ENCOUNTER 2025-07-28 20:12 | Emergency (ER) | payer MEDICARE ==
[~2025-07-28] VITALS: Ht 170.2 cm; Wt 68.9 kg
[2025-07-28 20:14] VITALS: TEMP 97.8
--- NOTE | 2025-07-28 20:19 | EKG ---
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
[2025-07-28 20:58] LABS: IMMATURE GRANULOCYTE ABSOLUTE 0.02 K/uL (0-1); NUCLEATED RED BLOOD CELLS 0.0 % (0.0-0.19); PLATELET COUNT (AUTO) 103 K/uL (130-400); RED BLOOD CELL COUNT(AUTO) 4.35 MIL/uL (4.00-5.50); RED CELL DISTRIBUTION WIDTH 12.4 % (11.0-15.5); WHITE BLOOD COUNT (AUTO) 5.3 K/uL (4.8-10.8)
[2025-07-28 21:02] LABS: CREATININE 1.0 mg/dL (0.5-1.0); GLOMERULAR FILTR. RATE CALC 57.0 mL/min (>90); GLUCOSE,RANDOM 168.0 mg/dL (70-105); SODIUM SERUM 143.0 mmol/L (136-145); UREA NITROGEN, BLOOD 23.0 mg/dL (7-18)
[2025-07-28 21:07] LABS: CREATINE KINASE, TOTAL 57.0 U/L (21-232)
[2025-07-28 21:10] LABS: ADD UA MICROSCOPIC YES; APPEARANCE,URINE CLEAR (CLEAR); GLUCOSE, URINE (UA) NEGATIVE (NEGATIVE); LEUKOCYTE ESTERASE ,URINE NEGATIVE Leu/uL (NEGATIVE); NITRATE,URINE NEGATIVE (NEGATIVE); OCCULT BLOOD,URINE NEGATIVE (NEGATIVE)
[2025-07-28 21:13] LABS: SQUAMOUS EPITHELIAL CELL,UR RARE /HPF (0-2)
--- NOTE | 2025-07-28 21:34 | ERN ---
ED Note History of Present Illness Stated Complaint: HIGH BP Chief Complaint: Hypertension Time Seen by : 20:17 Time Seen by Midlevel: 20:20 Dictation: 79-year-old female with a history of hypertension coming in with complaints of elevated blood pressure. As per daughter at bedside the patient has already complaining about a headache at about 1800 they gave her two Tylenol in her headache subsided, they took her blood pressure was 177/80, states 30 minutes. They checked it again and BP kept on rising. Patient took her hydralazine 100 mg at about 8:00 a.m. in came in for evaluation. At this time patient has no complaints. 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 Allergies: Coded Allergies: No Known Allergies (Verified Allergy, 10/27/12) Home Meds Active Scripts Lidocaine (Lidoderm Patch 5%) 5 % Patch, 1 PATCH TD DAILY for 30 Days, #30 ADH.PATCH 0 Refills Prov:CARLOS FOSTER MD 08/23/23 Ibuprofen (Motrin/Advil) 800 Mg Tab, 800 MG PO TID, #30 TAB Prov:CARLOS FOSTER MD 08/23/23 Gabapentin (Neurontin) 300 Mg Capsule, 300 MG PO TID, #60 CAP Prov:CARLOS FOSTER MD 08/23/23 Cyclobenzaprine HCl (Cyclobenzaprine HCl) 10 Mg Tablet, 10 MG PO TID, #60 TAB Prov:CARLOS FOSTER MD 08/23/23 Metronidazole (Metronidazole) 500 Mg Tablet, 500 MG PO TID for 10 Days, #30 TAB 0 Refills Prov:ELOISE CASILLAS Sr., MD 06/27/23 Cephalexin Monohydrate (Keflex) 500 Mg Cap, 500 MG PO BID, #5 DAYS Prov:CRISELDA MONTOYA MD 04/11/22 Amoxicillin/Potassium Clav (Augmentin 875-125 Tablet) 1 Each Tablet, 1 EACH PO BID, #14 TAB Prov:LEOLA DODSON MD 03/10/17 Reported Medications Pravastatin Sodium (Pravastatin Sodium) 80 Mg Tablet, 1 TAB PO HS, #90 02/23/17 Lisinopril (Lisinopril) 30 Mg Tablet, 1 TAB PO 2000, #90 02/23/17 Omeprazole (Omeprazole) 40 Mg Capsule.dr, 1 CAP PO NOON, #90 02/23/17 Metformin HCl (Metformin HCl) 500 Mg Tablet, 1 TAB PO 1700, #90 02/23/17 Past Medical History Past Medical History: Diabetes-Type II, High Cholesterol, Hypertension Surgical History: Hysterectomy, Tonsillectomy, Cholecystectomy Family History: Negative Social History: Negative Review of System Dictation Constitutional: Negative for fever,chills, and weight loss Eyes: Negative for injury, pain,redness, and discharge ENT: Negative for injury,pain or swelling Cardiovascular: Negative for chest pain, palpitations, and edema Respiratory: Negative for shortness of breath, cough, and wheezing, Abdomen/GI: Negative for abdominal pain, nausea, vomiting, diarrhea, and constipation Back: Negative for injury and pain : Negative for injury, bleeding and discharge MS/Extremity: Negative for injury and deformity Skin: Negative for rash, and discoloration Neuro: Negative for headache, weakness, numbness, tingling, and seizure Psych: Negative for suicide ideation, homicidal ideation, and hallucinations Review of Systems: was completed Initial Vital Sign VS Vital Signs Date Time Temp Pulse Resp B/P (MAP) Pulse Ox O2 Delivery O2 Flow Rate FiO2 07/28/25 20:14 97.9 62 16 216/80 99 Room Air 07/28/25 20:56 0 21 Physical Exam Dictation General: awake, alert, NAD Head/Face: Normocephalic, atraumatic Eyes: PERRL, EOMI, vision at baseline ENT: oral cavity clear, TMs clear, no signs of infection Neck: Trachea midline, supple, no nuchal rigidity Cardiovascular: RRR, normal S1/S2, No MRGs, no JVD Respiratory: CTAB, no respiratory distress, No rales or wheezes Abdomen: Soft, non-tender, non-distended, normal bowel sounds, no guarding or rebound. Skin: Warm, dry, normal turgor, no rash MS/Extremity: Pulses equal, no cyanosis, neurovascular intact, FROM Neuro: COAx4, GCS 15, strength 5/5, CN 2-12 intact, normal cerebellar exam, normal gait, Psych: Normal behavior, mood, and affect normal Results (Laboratory/Radiology) Laboratory/Radiology Laboratory Tests Test 07/28/25 20:46 07/28/25 21:03 White Blood Count 5.3 K/uL (4.8-10.8) Red Blood Count 4.35 MIL/uL (4.00-5.50) Hemoglobin 12.7 g/dL (12.0-16.0) Hematocrit 38.6 % (36-48) Mean Corpuscular Volume 88.7 fL (79-99) Mean Corpuscular Hemoglobin 29.2 pg (27.0-33.0) Mean Corpuscular Hemoglobin Concent 32.9 g/dL (32.0-36.0) Red Cell Distribution Width 12.4 % (11.0-15.5) Platelet Count 103 K/uL (130-400) L Mean Platelet Volume 11.8 fL (7.5-10.5) H Immature Granulocyte % (Auto) 0.4 % (0-1) Neutrophils (%) (Auto) 58.6 % (40.0-77.0) Lymphocytes (%) (Auto) 30.9 % (21.0-51.0) Monocytes (%) (Auto) 7.8 % (3.0-13.0) Eosinophils (%) (Auto) 1.7 % (0.0-8.0) Basophils (%) (Auto) 0.6 % (0.0-5.0) Neutrophils # (Auto) 3.1 K/uL (1.8-7.7) Lymphocytes # (Auto) 1.6 K/uL (1.0-4.8) Monocytes # (Auto) 0.4 K/uL (0.1-1.0) Eosinophils # (Auto) 0.09 K/uL (0.00-0.70) Basophils # (Auto) 0.03 K/uL (0.00-0.20) Absolute Immature Granulocyte (auto 0.02 K/uL (0-1) Nucleated Red Blood Cells 0.0 % (0.0-0.19) Sodium Level 143 mmol/L (136-145) Potassium Level 3.9 mmol/L (3.5-5.1) Chloride Level 108 mmol/L (101-111) Carbon Dioxide Level 29 mmol/L (21-32) Blood Urea Nitrogen 23 mg/dL (7-18) H Creatinine 1.0 mg/dL (0.5-1.0) Glomerular Filtration Rate Calc 57 mL/min (>90) Random Glucose 168 mg/dL (70-105) H Total Calcium 9.6 mg/dL (8.5-10.1) Total Creatine Kinase 57 U/L (21-232) # Troponin I High Sensitivity 11 ng/L (4-50) Urine Color YELLOW (YELLOW) Urine Appearance CLEAR (CLEAR) Urine pH 8.0 (5.0-8.0) Urine Specific [place] 1.023 (1.001-1.031) Urine Protein 10 mg/dL (NEGATIVE) H Urine Glucose (UA) NEGATIVE mg/dL (NEGATIVE) Urine Ketones NEGATIVE mg/dL (NEGATIVE) Urine Occult Blood NEGATIVE (NEGATIVE) Urine Nitrate NEGATIVE (NEGATIVE) Urine Bilirubin NEGATIVE mg/dL (NEGATIVE) Urine Urobilinogen 2.0 mg/dL (0.2-1.0) H Urine Leukocyte Esterase NEGATIVE [place]/uL Urine RBC 2-5 /HPF (0-1) H Urine WBC 0-1 /HPF (0-1) Urine Squamous Epithelial Cells RARE /HPF (0-2) Urine Bacteria RARE /HPF (None Seen) Labs Reviewed?: Yes X-RAY Comment: [address] [id number] IMAGING REPORT Signed PATIENT: MARIANNE DUARTE MR#: [id number] : 1945 SEX: F AGE: 79 LOCATION: [facility] ORDER 14 STATUS: [facility] REPORT#: [id number] SERVICE 14 REASON: CHEST PAIN ORDERING PHYSICIAN: JUAN DIEGO PEREZ MD PROCEDURE: CXR1VW - CHEST 1VW EXAM: CR Chest, 1 view CLINICAL HISTORY: Chest pain. COMPARISON: None provided. FINDINGS: Hyperinflated lungs, likely mild COPD. The lungs show no infiltrates or other acute findings. No pleural effusion or pneumothorax. The cardiomediastinal silhouette is within normal limits. No acute osseous abnormality. IMPRESSION: No acute cardiopulmonary process is evident. Mild COPD. /[place] DICTATED BY: MIRTHA MICHAELS Jr., MD DATE: 10/30/25 2238 ELECTRONICALLY SIGNED BY: MIRTHA MICHAELS Jr., MD DATE: 07/28/252237 ED Course ED Course Orders Procedure Category Date Status Time Vital Signs Per CPOE 07/28/25 Transmitted Routine 20:15 Chest 1vw RAD 07/28/25 Resulted 20:15 12 Lead Ekg Tracing- EKG 07/28/25 Complete Technical 20:15 Oxygen By Nc/Pulse Ox CPOE 07/28/25 Transmitted 20:15 Maintain Iv CPOE 07/28/25 Transmitted 20:15 Iv Insertion CPOE 07/28/25 Transmitted 20:15 Cardiac Monitoring CPOE 07/28/25 Transmitted 20:15 Pulse Oximetry With CPOE 07/28/25 Transmitted Vs And Prn 20:15 Cbc With Differential LAB 07/28/25 Complete 20:15 Activity: Br W/Brp CPOE 07/28/25 Transmitted With Assist 20:15 Creatine Kinase, Total LAB 07/28/25 Complete 20:15 Troponin I High LAB 07/28/25 Complete Sensitivity 20:15 Urinalysis Profile LAB 07/28/25 Complete 20:15 Basic Metabolic Panel LAB 07/28/25 Complete 20:15 Hydralazine 20mg Inj PHA 07/28/25 Complete (Apresoline 20mg In 21:26 Current Medications Medications (Trade) Dose Ordered Sig/Alma Delia Route PRN Reason Start Time Stop Time Status Last Admin Dose Admin Hydralazine HCl (APRESOLine 20MG INJ) 10 mg ONCE STAT IV 07/28/25 21:26 07/28/25 21:32 DC Vital Signs Date Time Temp Pulse Resp B/P (MAP) Pulse Ox O2 Delivery O2 Flow Rate FiO2 07/28/25 21:56 58 18 167/68 97 Room Air* 0 21 07/28/25 21:28 55 16 178/60 98 Room Air* 0 21 07/28/25 20:56 63 18 197/73 100 Room Air* 0 21 07/28/25 20:14 97.9 62 16 216/80 99 Room Air Medical Decision Making MDM MDM: 79-year-old female with a history of hypertension coming in with complaints of elevated blood pressure. As per daughter at bedside the patient has already complaining about a headache at about 1800 they gave her two Tylenol in her headache subsided, they took her blood pressure was 177/80, states 30 minutes. They checked it again and BP kept on rising. Patient took her hydralazine 100 mg at about 8:00 a.m. in came in for evaluation. At this time patient has no complaints. 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 Chemistry unremarkable. Normal kidney function. Glucose 168. Troponin is negative. UA shows no evidence of urinary tract infection. Chest x-ray shows no acute finding. EKGs shows no ST elevations. Throughout the patient's stay blood pressure came down to 167/66,Ii operate the patient to be admitted for observation. Patient refused to be admitted stated she she rather go home. She has an appointment at 8:[address] Loomis. Educated on red flag symptoms of when to return back to the emergency room. Both patient and daughter verbalized understanding, answered all questions. Differential diagnosis: Hypertensive urgency, hypertensive emergency, electrolyte abnormality, Rationale: Tests considered and ordered secondary to shared decision making include: Previous outside records reviewed: Old ER visits. Risk of complication and/or morbidity or mortality of patient management: None Medications-Per medication reconciliation Need for hospitalization: Patient does not meet criteria for hospitalization. Need for emergency major/minor surgery: No There are no social concerns with this patient. Prescription drug management Prescriptions will include symptomatic care Patient's prior external medical records from other ER visits were reviewed by me as indicated. Prior testing and results from previous visits were reviewed. Prior tests were taken into account with medical decision making and resource utilization, independent historian/historians were used to obtain complete medical history. I independently interpreted the test that were performed, results were reviewed by me and considered findings on radiology if ordered. Medical management and examination interpretation discussions were had by me with other qualified healthcare professionals as indicated for the patient's care. DX & DISP Disposition: Discharge Departure Impression: Primary Impression: HTN (hypertension) Condition: Stable Additional Instructions: Your appointment with Dr. Cal pratt tomorrow. If you feel worse between right now when your appointment return back to the emergency room. Referrals: BRET REDD MD (PCP) Time of Disposition: 22:18 I have reviewed the case, and I agree with, Diagnosis and Plan [facility] Jul 28, 2025 21:34
--- NOTE | 2025-07-28 21:39 | HMCIMG ---
EXAM: CR Chest, 1 view CLINICAL HISTORY: Chest pain. COMPARISON: None provided. FINDINGS: Hyperinflated lungs, likely mild COPD. The lungs show no infiltrates or other acute findings. No pleural effusion or pneumothorax. The cardiomediastinal silhouette is within normal limits. No acute osseous abnormality. IMPRESSION: No acute cardiopulmonary process is evident. Mild COPD. /[place]
[2025-07-28 21:56] VITALS: BP 167/68; PULSE 58; RESP 18; O2SAT 97
== END 2025-07-28 22:30 | disposition home or self-care (01) ==
LOC: EDH 20:12
DX: I10 Essential (primary) hypertension (principal); R51.9 Headache, unspecified; E11.9 Type 2 diabetes mellitus without complications; E78.00 Pure hypercholesterolemia, unspecified; Z79.899 Other long term (current) drug therapy; Z79.1 Long term (current) use of non-steroidal anti-inflammatories (NSAID); Z90.49 Acquired absence of other specified parts of digestive tract; Z90.710 Acquired absence of both cervix and uterus
CPT/HCPCS: 36415; 71045; 80048; 81001; 82550; 84484; 85025; 93005; 99285; J0360